=== PATIENT | male | born 1985 | race African-American/Black ===

== ENCOUNTER 2016-04-13 11:23 | Emergency (ER) | payer BC, SELFPAY ==
[2016-04-13] MEDS ORDERED: Ketorolac Tromethamine 60 MG/2 ML VIAL ONE (11:33)
[2016-04-13] MEDS ORDERED: Bicillin LA 1.2 MILLION UNITS/2 ML SYRINGE ONE (11:44)
== END 2016-04-13 12:07 | disposition home or self-care (01) ==
LOC: BURERS 11:23
DX: J02.0 Streptococcal pharyngitis (principal); I10 Essential (primary) hypertension; Z79.899 Other long term (current) drug therapy
CPT/HCPCS: 87430; 96372; J0561; J1885

== ENCOUNTER 2017-02-24 12:07 | Emergency (ER) | payer SELFPAY | END 2017-02-24 13:16 | disposition home or self-care (01) | LOC: BURERS 12:07 | DX: J11.1 Influenza due to unidentified influenza virus with other respiratory manifestations (principal); I10 Essential (primary) hypertension; I25.2 Old myocardial infarction; F17.210 Nicotine dependence, cigarettes, uncomplicated; Z79.899 Other long term (current) drug therapy | CPT/HCPCS: 99283 ==

== ENCOUNTER 2021-02-09 17:46 | Emergency (ER) | payer SELFPAY | END 2021-02-09 18:30 | disposition home or self-care (01) | LOC: BURERS 17:46 | DX: J11.1 Influenza due to unidentified influenza virus with other respiratory manifestations (principal); I10 Essential (primary) hypertension; I25.2 Old myocardial infarction; F17.210 Nicotine dependence, cigarettes, uncomplicated | CPT/HCPCS: 99283 ==

== ENCOUNTER 2022-01-23 08:36 | Emergency (ER) | payer SELFPAY ==
[2022-01-23 09:47] LABS: Hemoglobin 13.7 g/dL (14.0-18.0); Mean Corpuscular HGB CONC 33.6 g/dL (32.0-36.0); Mean Corpuscular Hemoglobin 31.1 pg (27.0-31.0); Mean Corpuscular Volume 92.5 fl (78.0-98.0); Mean Platelet Volume 7.1 fL (7.4-10.4); Platelet Count 275 10x3/uL (130-400); RBC Distribution Width 12.7 % (11.5-14.5); Red Blood Cell (RBC) Count 4.42 mill/uL (4.70-6.10); White Blood Cell (WBC) Count 11.8 10x3/uL (4.8-10.8)
[2022-01-23 09:48] LABS: ALT (SGPT) 17 U/L (8-55); AST (SGOT) 12 U/L (5-34); Albumin 4.1 g/dL (3.5-5.0); Alkaline Phosphatase 62 U/L (40-110); Anion Gap 13 mmol/L (10-20); BUN (Urea Nitrogen) 10 mg/dL (8.9-20.6); Bilirubin, Total 0.7 mg/dL (0.2-1.2); Calc. Creatinine Clearance 0 mL/min (70-130); Calcium 9.4 mg/dL (7.8-10.44); Carbon Dioxide 25 mmol/L (22-29); Chloride 105 mmol/L (98-107); Estimated GFR 117; Globulin 3.6 g/dL (2.4-3.5); Glucose 102 mg/dL (70-105); Potassium 3.4 mmol/L (3.5-5.1); Protein, Total 7.7 g/dL (6.0-8.3); Sodium 140 mmol/L (136-145)
[2022-01-23 09:58] LABS: Bilirubin Small (Negative); Blood, Urine Negative (Negative); Clarity Clear (Clear); Glucose, Urine (Dipstick) Negative (Negative); Ketone, Urine 40 mg/dL (Negative); Leukocyte Trace (Negative); Nitrite Negative (Negative); Protein, Urine (Dipstick) 30 mg/dL (Neg-Trace); Urobilinogen 0.2 mg/dL (Less than 2)
[2022-01-23 10:07] LABS: Specific Gravity, Urine 1.026 (1.002-1.036)
[2022-01-23] MEDS ORDERED: Iopamidol 370 76% 100 ML VIAL ONE (10:12)
[2022-01-23 10:13] LABS: Bacteria/HPF Rare-Few HPF (None Seen); RBC/HPF None Seen HPF (0-3); Squamous Epithelial 0-3 HPF (0-3); WBC/HPF 0-3 HPF (0-3)
[2022-01-23] MEDS ORDERED: Dicyclomine 20 MG TAB ONE (10:24)
[2022-01-23 10:25] LABS: Lymphocytes 15 % (21-51); MDiff Complete? YES; Monocytes 6 % (0-10); Neutrophil 79 % (42-75); Platelet Morphology Comment Appears Adequate; RBC Morphology Normal
[2022-01-23 10:27] LABS: Mucous/LPF 1+ LPF (<2+)
[2022-01-23] MEDS ORDERED: Amoxicillin/Potassium Clav 875 MG TAB ONE (10:41)
== END 2022-01-23 10:53 | disposition home or self-care (01) ==
LOC: BURERS 08:36
DX: K57.92 Diverticulitis of intestine, part unspecified, without perforation or abscess without bleeding (principal); I10 Essential (primary) hypertension; F17.210 Nicotine dependence, cigarettes, uncomplicated
CPT/HCPCS: 74177; 80053; 81003; 81015; 85025; 87804; Q9967